=== PATIENT | male | born 1960 | race Caucasian/White ===

== ENCOUNTER 2019-04-26 08:51 | Observation (INO) ==
[2019-04-26 10:05] LABS: Basophils % 0.2 %; Eosinophils % 0.1 %; Hematocrit 53.8 % (37.5-50.1); Hemoglobin 17.7 g/dL (12.9-16.9); Immature Granulocytes % 0.8 % (0-4); Lymphocytes # 1.8 K/mcL (0.6-4.6); Lymphocytes % 13.5 %; Mean Corpuscular HGB Conc 32.9 g/dL (31.6-35.5); Mean Corpuscular Hemoglobin 30.8 pg (28.0-33.3); Mean Corpuscular Volume 93.6 fL (83.0-100.0); Mean Platelet Volume 10.1 fL (9.4-12.4); Monocytes # 1.1 K/mcL (0.0-1.3); Monocytes % 8.2 %; Neutrophils # 10.1 K/mcL (1.6-8.9); Platelet Count 356 K/mcL (140-400); Red Blood Count 5.75 M/mcL (4.19-5.50); Red Cell Distribution Width 13.5 % (11.5-14.5); Segmented Neutrophils % 77.2 %; White Blood Count 13.1 K/mcL (4.3-11.1)
[2019-04-26 10:22] LABS: BUN/Creatinine Ratio 16 (6-26); Blood Urea Nitrogen 12 mg/dL (8-23); Calcium 9.8 mg/dL (8.6-10.3); Carbon Dioxide 39 mEq/L (23-29); Chloride 91 mEq/L (98-107); Glucose 147 mg/dL (70-105); Osmolality,Calculated 284 (280-300); Potassium 3.4 mEq/L (3.5-5.1); Sodium 136 mEq/L (136-145); eGFR For African Americans > 60 (> 60); eGFR For Non-African Americans > 60 (> 60)
[2019-04-26 10:23] LABS: Troponin I < 0.03 ng/mL (< 0.04)
[2019-04-26] MEDS ORDERED: predniSONE 20 MG TABLET PO ONE (10:23)
[2019-04-26] MEDS ORDERED: Ipratropium/Albuterol Neb 3 ML IH ONE (10:23)
[2019-04-26] MEDS ORDERED: Naloxone 0.4 MG/ML INJ IVP PRN (12:39)
[2019-04-26] MEDS ORDERED: Ipratropium/Albuterol Neb 3 ML IH PRN (12:41)
[2019-04-26] MEDS ORDERED: Nicotine 14 MG PATCH.TD24 TD PRN (12:42)
[2019-04-26] MEDS: Ipratropium/Albuterol Neb 3 ML IH SCH ×3 (15:28→23:38)
[2019-04-26] MEDS: *HR* Heparin 5,000 UNIT/ML VIAL SQ SCH (19:09)
[2019-04-27] MEDS: Ipratropium/Albuterol Neb 3 ML IH SCH ×6 (03:27→23:40)
[2019-04-27] MEDS: *HR* Heparin 5,000 UNIT/ML VIAL SQ SCH ×2 (05:19→17:42)
[2019-04-27 07:22] LABS: BUN/Creatinine Ratio 25 (6-26); Blood Urea Nitrogen 16 mg/dL (8-23); Calcium 9.2 mg/dL (8.6-10.3); Carbon Dioxide 35 mEq/L (23-29); Chloride 94 mEq/L (98-107); Glucose 123 mg/dL (70-105); Osmolality,Calculated 293 (280-300); Sodium 140 mEq/L (136-145); eGFR For African Americans > 60 (> 60); eGFR For Non-African Americans > 60 (> 60)
[2019-04-27] MEDS ORDERED: predniSONE 20 MG TABLET PO SCH (09:00)
[2019-04-27] MEDS: MethylPREDNISolone 40 MG/ML VIAL IVP SCH ×2 (09:12→17:42)
[2019-04-27] MEDS ORDERED: Albuterol 2.5 MG/3 ML NEBULIZER IH PRN (12:05)
[2019-04-27 12:09] LABS: Adenovirus Not Detected (Not Detect); Coronavirus 229E Not Detected (Not Detect); Coronavirus HKU1 Not Detected (Not Detect); Coronavirus NL63 Not Detected (Not Detect); Coronavirus OC43 Not Detected (Not Detect); Human Metapneumovirus Not Detected (Not Detect); Human Rhinovirus/Enterovirus Not Detected (Not Detect)
[2019-04-27 12:10] LABS: Bordetella Pertussis Not Detected (Not Detect); Chlamydophila pneumoniae Not Detected (Not Detect); Influenza A Subtype 2009 H1 Not Detected (Not Detect); Influenza B Not Detected (Not Detect); Mycoplasma pneumoniae Not Detected (Not Detect); Parainfluenza Virus 1 Not Detected (Not Detect); Parainfluenza Virus 2 Not Detected (Not Detect); Parainfluenza Virus 3 Not Detected (Not Detect); Parainfluenza Virus 4 Not Detected (Not Detect); Respiratory Syncytial Virus Not Detected (Not Detect)
[2019-04-28] MEDS: Ipratropium/Albuterol Neb 3 ML IH SCH ×3 (04:14→11:09)
[2019-04-28] MEDS: *HR* Heparin 5,000 UNIT/ML VIAL SQ SCH (05:25)
[2019-04-28] MEDS: MethylPREDNISolone 40 MG/ML VIAL IVP SCH (05:25)
[2019-04-28 10:39] LABS: BUN/Creatinine Ratio 22 (6-26); Blood Urea Nitrogen 16 mg/dL (8-23); Calcium 9.7 mg/dL (8.6-10.3); Carbon Dioxide 31 mEq/L (23-29); Chloride 99 mEq/L (98-107); Glucose 159 mg/dL (70-105); Osmolality,Calculated 291 (280-300); Potassium 4.5 mEq/L (3.5-5.1); Sodium 138 mEq/L (136-145); eGFR For African Americans > 60 (> 60); eGFR For Non-African Americans > 60 (> 60)
[2019-04-28 11:36] VITALS: BP 126/61
== END 2019-04-28 11:50 | disposition home or self-care (01) ==
LOC: EMEROOARM 08:51 → 2ANU 08:51 → SUATTDRO 13:30 → 2ANU 13:49
PROVIDERS: ADMIT Internal Medicine; ATTEND Internal Medicine